=== PATIENT | male | born 1960 | race Two or more races ===

== ENCOUNTER → 2018-09-03 | Outpatient (REF) | payer BC ==
[~2018-09-03] MED LIST: CLI150 PO; KET10 PO; LOR5/325 PO; LOR75 PO; METH4TAB57 PO; VAL500 PO
== END ==
LOC: ZZSENDIN 09:59
PROVIDERS: ATTEND Physician Assistant
DX: N40.0 Benign prostatic hyperplasia without lower urinary tract symptoms (principal)
CPT/HCPCS: 84153; 84403

== ENCOUNTER → 2018-09-05 | Outpatient (CLI) | payer BC ==
[~2018-09-05] MED LIST changes: +ATOR20TA22 PO; +TAMS0.4C25 PO; +bezafibrate
== END ==
LOC: LAB 14:31
PROVIDERS: ATTEND Urology
DX: R97.20 Elevated prostate specific antigen [PSA] (principal)
CPT/HCPCS: 36415; 84153; 84154; 84402; 84403

== ENCOUNTER → 2018-09-12 | Outpatient (CLI) | payer BC ==
[~2018-09-12] MED LIST changes: +CIPR-214 PO
== END ==
LOC: LAB 08:23
PROVIDERS: ATTEND Urology
DX: Z01.818 Encounter for other preprocedural examination (principal); R31.9 Hematuria, unspecified
CPT/HCPCS: 81001; 87081

== ENCOUNTER 2018-09-25 00:26 | Day surgery (SDC) | payer BC ==
[~2018-09-25] VITALS: Ht 182.9 cm; Wt 98.9 kg
[~2018-09-25 00:26] MED LIST changes: +GENT40VI IJ
[2018-09-25] MEDS ORDERED: FAMOTIDINE 20 MG TAB PO ONE (08:00)
[2018-09-25] MEDS ORDERED: LIDOCAINE/SOD BICARB 8.4% SYR ID ONE (08:00)
[2018-09-25] MEDS ORDERED: MIDAZOLAM 2 MG/2 ML VIAL IVP PRN ×2 (08:00→11:20)
[2018-09-25] MEDS: NORMOSOL R SOLN(*) 1000 ML BAG 1,000 ML IV PRN ×2 (09:21→10:45)
[2018-09-25] MEDS ORDERED: PROPOFOL EMUL(*) 10MG/ML 20 ML 20 ML ONE (09:50)
[2018-09-25] MEDS ORDERED: LIDOCAINE MPF 1% 5 ML VIAL ONE (09:50)
[2018-09-25] MEDS ORDERED: ONDANSETRON 4 MG/2 ML VIAL ONE (09:50)
[2018-09-25] MEDS ORDERED: DEXAMETHASONE SOD 4 MG/ML VIAL ONE (09:50)
[2018-09-25] MEDS ORDERED: fentaNYL CITR 100 MCG/2 ML AMP ONE ×2 (09:50→11:09)
[2018-09-25 09:52] VITALS: BP 147/86
[2018-09-25] MEDS ORDERED: BUPIVACAIN 0.25% INJ 50ML VIAL ONE (10:52)
[2018-09-25] MEDS ORDERED: BELLADONNA ALK/OPIUM 60MG SUPP PR ONE (10:52)
[2018-09-25] MEDS ORDERED: KETAMINE HCL 200 MG/20 ML MDV ONE (10:57)
[2018-09-25] MEDS ORDERED: GENTAMICIN/NS 80 MG/100 ML PB 100 ML IVPB ONE (11:10)
--- NOTE | 2018-09-25 11:58 | Urology Discharge Summary ---
Discharge Summary Reason for Hosp/Final Diag: (1) Elevated PSA Status: Acute Departure Weight (Pounds): 218 Condition: No Change Discharge: Home Discharge Instructions Home Meds Active Scripts Ciprofloxacin 500 Mg Tab (CIPROFLOXACIN 500 MG TAB) 500 Mg Tablet, 500 MG PO QDAY for 2 Days, #2 TAB Take one tablet on Saturday night (09/24/18) and take the other tablet on morning (09/25/18). Prov:BIRD CARRASCO MD 09/23/18 Reported Medications [bezafibrate] No Conflict Check, 200 MG 09/05/18 Atorvastatin Calcium (LIPITOR) 20 Mg Tablet, 1 TAB PO QDAY, TAB 09/05/18 Tamsulosin Hcl (FLOMAX) 0.4 Mg Cap.er.24h, 0.4 MG PO, CAP 09/05/18 Diet: Regular Activity: As Tolerated Venous Thromboembolism Antithrombotics Is Pt On Any Antithrombotics?: No BIRD CARRASCO MD Sep 25, 2018 11:58
[2018-09-25 12:30] VITALS: BP 120/82
[2018-09-25 12:45] VITALS: BP 121/83
[2018-09-25 13:00] VITALS: BP 122/86
[2018-09-25 13:11] VITALS: BP 108/87
[2018-09-25 13:18] VITALS: BP 128/81
--- NOTE | 2018-09-25 13:47 | RADIOLOGY IMAGING REPORT ---
[place] [facility] [place] NAME: Dameon Munson : 1960 MR: [id number] V: [id number] EXAM DATE: ORDERING PHYSICIAN: BIRD CARRASCO TECHNOLOGIST: Location: [facility] - [place] Patient: Dameon Munson : 1960 Visit/Account:[id number] Date of Sevice: 09/25/2018 Exam type: PROSTATE BIOPSY History: elevated PSA and possible prostate cancer Comparison: None. Findings: The prostate biopsy was performed by Dr. Carrasco. Sonographic assistance was provided. Please see Dr Mike Wang's report for complete details IMPRESSION: 1. As above Report Dictated By: Khushi Caballero MD at 09/25/2018 1:42 PM Report E-Signed By: Khushi Caballero MD at 09/25/2018 1:43 PM WSN:[id number]
--- NOTE | 2018-09-25 16:18 | OPERATIVE REPORT 1 ---
EVENT DATE: September 25, 2018 SURGEON: Forest Jaquez MD ANESTHESIOLOGIST: Enrique Bailey MD ANESTHESIA: General. SECURITY EXPERT: None. PREOPERATIVE DIAGNOSIS Elevated prostate-specific antigen. POSTOPERATIVE DIAGNOSIS Elevated prostate-specific antigen. PROCEDURE PERFORMED Transrectal ultrasound-guided biopsy of the prostate. DESCRIPTION OF PROCEDURE The patient was brought to the operating room, and after the adequate induction of general anesthesia, he was placed in the relaxed dorsal lithotomy position. The genitalia were prepped and the transrectal ultrasound passed into the rectum and the prostate visualized. The estimated glandular volume was 37 cc. A prostatic block of 0.25% plain Marcaine was then placed, and 12 cores were obtained with attention to the peripheral zone bilaterally. He tolerated the procedure well. A B and O suppository was administered. He was aroused from anesthesia and then transported to PACU in stable condition. DESTINY
== END 2018-09-25 12:22 | disposition home or self-care (01) ==
LOC: OR 00:26
PROVIDERS: ATTEND Urology
DX: R97.20 Elevated prostate specific antigen [PSA] (principal)
CPT/HCPCS: 55700; 76942; 88305; 88344; J1100; J2001; J2250; J2405; J2704; J3010; J3490

== ENCOUNTER 2018-09-27 12:45 | Emergency (ER) | payer BC ==
--- NOTE | 2018-09-27 12:56 | ER Report ---
History and Physical Time Seen By MD: 12:56 Hx. of Stated Complaint: SUBJECTIVE FEVER AND CHILLS HPI/ROS CHIEF COMPLAINT: fever/chills HISTORY OF PRESENT ILLNESS: Patient is a 57 year old male presenting to the clinic for chills and fever. Patient had a prostrate biopsy done on . Patient states he took Ciprofloxacin 500 mg the night before and that morning. Patient states the biopsy went fine. Yesterday around 1:00 pm, patient stated to feel chilled. Patient states he would then feel hot and sweaty. Patient did not take his temperature at home. Patient states his "bones ache". REVIEW OF SYSTEMS: General: + slight headache HEENT: Throat dryness Respiratory: No cough, no dyspnea. Cardiovascular: No chest pain, no palpitations. Gastrointestinal: No vomiting, no abdominal pain. Musculoskeletal: No back pain. Allergies: Coded Allergies: No Known Drug Allergies (Verified , 11/04/09) Home Meds Active Scripts Ciprofloxacin 500 Mg Tab (CIPROFLOXACIN 500 MG TAB) 500 Mg Tablet, 500 MG PO QDAY for 2 Days, #2 TAB Take one tablet on Saturday night (09/24/18) and take the other tablet on morning (09/25/18). Prov:BIRD CARRASCO MD 09/23/18 Reported Medications [bezafibrate] No Conflict Check, 200 MG 09/05/18 Atorvastatin Calcium (LIPITOR) 20 Mg Tablet, 1 TAB PO QDAY, TAB 09/05/18 Tamsulosin Hcl (FLOMAX) 0.4 Mg Cap.er.24h, 0.4 MG PO, CAP 09/05/18 Past Medical/Surgical History Patient has a medical history of hyperlipidemia and an elevated PSA. Patient has a surgical history of appendicitis, tonsillectomy, prostrate biopsy, and orthopedic surgeries on his left upper arm, left knee, and cervical spine. Reviewed Nurses Notes: Yes Hx Smoking: No Smoking Status: Never Smoker Exposure to Second Hand Smoke?: No Hx Substance Use Disorder: No Hx Alcohol Use: Yes Constitutional Vital Sign - Last 24 Hours 09/27/18 09/27/18 09/27/18 09/27/18 12:49 12:49 13:00 13:15 Temp 98.3 Pulse 78 70 Resp 20 B/P (MAP) 130/88 (102) 130/88 131/82 (98) Pulse Ox 91 91 O2 Delivery Room Air 09/27/18 09/27/18 09/27/18 13:30 13:35 14:00 Pulse 69 B/P (MAP) 124/77 (93) 124/77 (93) Pulse Ox 91 Physical Exam General Appearance: The patient is alert, has no immediate need for airway protection and no current signs of toxicity. Eyes: Pupils equal and round no injection. Throat: Slight erythemia noted. Respiratory: Chest is non tender, lungs are clear to auscultation. Cardiac: regular rate and rhythm 2/6 systolic murmur noted. Gastrointestinal: Abdomen is soft and non tender, no masses, bowel sounds normal. Musculoskeletal: Neck: Neck is supple and non tender. No lymphadenopathy noted. Skin: No rashes or lesions. DIFFERENTIAL DIAGNOSIS: After history and physical exam differential diagnosis was considered for influenza, strep throat, sepsis. Medical Decision Making Data Points Result Diagram: 09/27/18 1320 09/27/18 1320 Laboratory Hematology Test 09/27/18 12:53 09/27/18 13:15 09/27/18 13:20 09/27/18 13:25 Influenza Virus Type A (PCR) Negative (NEGATIVE) Influenza Virus Type B (PCR) Negative (NEGATIVE) Group A Streptococcus (PCR) Negative (NEGATIVE) Red Blood Count 5.04 M/uL (4.00-5.60) Mean Corpuscular Volume 86.7 fL (80.0-96.0) Mean Corpuscular Hemoglobin 29.3 pg (26.0-33.0) Mean Corpuscular Hemoglobin Concent 33.8 g/dL (32.0-36.0) Red Cell Distribution Width 13.0 % (11.5-14.5) Mean Platelet Volume 8.3 fL (7.2-11.1) Neutrophils (%) (Auto) 79.8 % (39.4-72.5) Lymphocytes (%) (Auto) 12.4 % (17.6-49.6) Monocytes (%) (Auto) 7.0 % (4.1-12.4) Eosinophils (%) (Auto) 0.3 % (0.4-6.7) Basophils (%) (Auto) 0.5 % (0.3-1.4) Nucleated RBC Relative Count (auto) 0.0 /100WBC Neutrophils # (Auto) 4.8 K/uL (2.0-7.4) Lymphocytes # (Auto) 0.7 K/uL (1.3-3.6) Monocytes # (Auto) 0.4 K/uL (0.3-1.0) Eosinophils # (Auto) 0.0 K/uL (0.0-0.5) Basophils # (Auto) 0.0 K/uL (0.0-0.1) Nucleated RBC Absolute Count (auto) 0.00 K/uL Sodium Level 136 mmol/L (137-145) Potassium Level 3.4 mmol/L (3.5-5.0) Chloride Level 105 mmol/L (98-107) Carbon Dioxide Level 23 mmol/L (22-30) Blood Urea Nitrogen 17 mg/dl (9-21) Creatinine 0.90 mg/dl (0.66-1.25) Glomerular Filtration Rate Calc > 60.0 Random Glucose 102 mg/dl (75-110) Calcium Level 8.6 mg/dl (8.4-10.2) Total Bilirubin 0.3 mg/dl (0.2-1.3) Aspartate Amino Transf (AST/SGOT) 24 U/L (0-35) Alanine Aminotransferase (ALT/SGPT) 36 U/L (0-56) Alkaline Phosphatase 69 U/L (0-126) Total Protein 6.6 g/dl (6.3-8.2) Albumin 3.8 g/dl (3.5-5.0) Urine Color Yellow Urine Clarity Slightly-cloudy Urine pH 6.0 pH (4.8-9.5) Urine Specific [place] 1.017 Urine Protein Negative mg/dL (NEGATIVE) Urine Glucose (UA) Negative mg/dL (NEGATIVE) Urine Ketones Negative mg/dL (NEGATIVE) Urine Blood Negative (NEGATIVE) Urine Nitrite Negative (NEGATIVE) Urine Bilirubin Negative (NEGATIVE) Urine Urobilinogen Negative mg/dL (0.2-1.9) Urine Leukocyte Esterase Negative (NEGATIVE) Urine RBC 4 /HPF (0-2/HPF) Urine WBC 2 /HPF (0-5/HPF) Urine Squamous Epithelial Cells None /LPF (</=FEW) Urine Bacteria Negative /HPF (NONE-FEW) Urine Mucus None /HPF (NONE-FEW) Chemistry Test 09/27/18 12:53 09/27/18 13:15 09/27/18 13:20 09/27/18 13:25 Influenza Virus Type A (PCR) Negative (NEGATIVE) Influenza Virus Type B (PCR) Negative (NEGATIVE) Group A Streptococcus (PCR) Negative (NEGATIVE) White Blood Count 6.0 k/uL (4.5-11.0) Red Blood Count 5.04 M/uL (4.00-5.60) Hemoglobin 14.7 g/dL (14.0-18.0) Hematocrit 43.7 % (42.0-52.0) Mean Corpuscular Volume 86.7 fL (80.0-96.0) Mean Corpuscular Hemoglobin 29.3 pg (26.0-33.0) Mean Corpuscular Hemoglobin Concent 33.8 g/dL (32.0-36.0) Red Cell Distribution Width 13.0 % (11.5-14.5) Platelet Count 232 K/uL (150-450) Mean Platelet Volume 8.3 fL (7.2-11.1) Neutrophils (%) (Auto) 79.8 % (39.4-72.5) Lymphocytes (%) (Auto) 12.4 % (17.6-49.6) Monocytes (%) (Auto) 7.0 % (4.1-12.4) Eosinophils (%) (Auto) 0.3 % (0.4-6.7) Basophils (%) (Auto) 0.5 % (0.3-1.4) Nucleated RBC Relative Count (auto) 0.0 /100WBC Neutrophils # (Auto) 4.8 K/uL (2.0-7.4) Lymphocytes # (Auto) 0.7 K/uL (1.3-3.6) Monocytes # (Auto) 0.4 K/uL (0.3-1.0) Eosinophils # (Auto) 0.0 K/uL (0.0-0.5) Basophils # (Auto) 0.0 K/uL (0.0-0.1) Nucleated RBC Absolute Count (auto) 0.00 K/uL Glomerular Filtration Rate Calc > 60.0 Calcium Level 8.6 mg/dl (8.4-10.2) Total Bilirubin 0.3 mg/dl (0.2-1.3) Aspartate Amino Transf (AST/SGOT) 24 U/L (0-35) Alanine Aminotransferase (ALT/SGPT) 36 U/L (0-56) Alkaline Phosphatase 69 U/L (0-126) Total Protein 6.6 g/dl (6.3-8.2) Albumin 3.8 g/dl (3.5-5.0) Urine Color Yellow Urine Clarity Slightly-cloudy Urine pH 6.0 pH (4.8-9.5) Urine Specific [place] 1.017 Urine Protein Negative mg/dL (NEGATIVE) Urine Glucose (UA) Negative mg/dL (NEGATIVE) Urine Ketones Negative mg/dL (NEGATIVE) Urine Blood Negative (NEGATIVE) Urine Nitrite Negative (NEGATIVE) Urine Bilirubin Negative (NEGATIVE) Urine Urobilinogen Negative mg/dL (0.2-1.9) Urine Leukocyte Esterase Negative (NEGATIVE) Urine RBC 4 /HPF (0-2/HPF) Urine WBC 2 /HPF (0-5/HPF) Urine Squamous Epithelial Cells None /LPF (</=FEW) Urine Bacteria Negative /HPF (NONE-FEW) Urine Mucus None /HPF (NONE-FEW) Urinalysis Test 09/27/18 13:25 Urine Color Yellow Urine Clarity Slightly-cloudy Urine pH 6.0 pH (4.8-9.5) Urine Specific [place] 1.017 Urine Protein Negative mg/dL (NEGATIVE) Urine Glucose (UA) Negative mg/dL (NEGATIVE) Urine Ketones Negative mg/dL (NEGATIVE) Urine Blood Negative (NEGATIVE) Urine Nitrite Negative (NEGATIVE) Urine Bilirubin Negative (NEGATIVE) Urine Urobilinogen Negative mg/dL (0.2-1.9) Urine Leukocyte Esterase Negative (NEGATIVE) Urine RBC 4 /HPF (0-2/HPF) Urine WBC 2 /HPF (0-5/HPF) Urine Squamous Epithelial Cells None /LPF (</=FEW) Urine Bacteria Negative /HPF (NONE-FEW) Urine Mucus None /HPF (NONE-FEW) ED Course/Re-evaluation ED Course Patient was admitted to the room and placed in the bed. History and physical were obtained. Differential diagnoses were considered. Swabs were obtained for influenza and strep throat. Lab work was drawn. Influenza and strep were both negative. Lab work does not indicate a bacteria infection. Results discussed with patient. Patient verbalized understanding. Patient discharged to home. Decision to Disposition Date: Sep 27, 2018 Decision to Disposition Time: 13:59 Depart Departure Latest Vital Signs Vital Signs Date Time Temp Pulse Resp B/P (MAP) Pulse Ox O2 Delivery O2 Flow Rate FiO2 09/27/18 14:00 124/77 (93) 09/27/18 13:35 69 91 09/27/18 12:49 98.3 20 Room Air Impression: Primary Impression: Viral syndrome Condition: Improved Disposition: HOME OR SELF-CARE Patient Instructions: Viral Syndrome (ED) Additional Instructions: Increase fluid intake. Get plenty of rest. Follow up with your primary care provider in the next week. Return to the ER if condition worsens. Take Tylenol or Ibuprofen as needed for fevers, aches or pain. You may take cough and cold medication, but pay attention to the Tylenol (Acetaminophen) amounts to take less than 3000mg a day. NIRAV PRATT Sep 27, 2018 12:56
[2018-09-27 13:28] LABS: PLATELET COUNT, AUTOMATED 232 K/uL (150-450)
[2018-09-27 14:00] VITALS: BP 124/77
== END 2018-09-27 14:03 | disposition home or self-care (01) ==
LOC: ER 12:49
DX: B34.9 Viral infection, unspecified (principal)
CPT/HCPCS: 81001; 82040; 82247; 82310; 82374; 82435; 82565; 82947; 84075; 84132; 84155; 84295; 84450; 84460; 84520; 85025; 87502; 87653; 99282